=== PATIENT | female | born 1990 | race Two or more races ===

== ENCOUNTER 2019-08-02 00:58 | Emergency (ER) | payer SELFPAY ==
[~2019-08-02] VITALS: Ht 154.9 cm; Wt 47.6 kg
[2019-08-02] MEDS ORDERED: Acetaminophen 500mg (ES) tab ORAL ONE (01:30)
[2019-08-02 01:43] VITALS: BP 100/70
--- NOTE | 2019-08-02 01:43 | NUR ---
ED Nurse Note: Patient waled in to Er c/o left tumb pain 07/31. States that hit her thubmb with a car door. AAO x4, VSS at this time, skin is warm to touch.
--- NOTE | 2019-08-02 02:05 | Diagnostic Imaging Report ---
EXAM: XR Left Hand Complete, 3 or More Views CLINICAL HISTORY: PAIN TECHNIQUE: Frontal, lateral and oblique views of the left hand. COMPARISON: No relevant prior studies available. FINDINGS: Bones joints: No acute fracture. No dislocation. Soft tissues: Unremarkable. No radiopaque foreign body. IMPRESSION: No acute osseous abnormalities.
[2019-08-02] MEDS ORDERED: TYLENOL EXTRA500 MG ORAL (02:18)
--- NOTE | 2019-08-02 02:25 | NUR ---
ER DISCHARGE NOTE: Patient is cleared to be discharged per ERMD, pt is aox4, on room air, with stable vital signs. pt was given dc and prescription instructions, pt was able to verbalize understanding, pt id band removed. pt is able to ambulate with steady gait. pt took all belongings.
--- NOTE | 2019-08-02 02:40 | Emergency Room Report ---
History of Present Illness General Chief Complaint: Upper Extremity Injury Source: Patient Present Illness HPI 29-year-old female presents ED for evaluation. Patient complaining of left thumb pain and bruising. States that she slammed the thumb in a car door night. States that there is bruising and discoloration to the nailbed. Pain is throbbing, 10 out of 10, nonradiating. Denies any other injuries. No other aggravating or relieving factors. Denies any other associated symptoms Allergies: Coded Allergies: IBUPROFEN (Verified Allergy, Unknown, 08/02/19) Patient History Past Medical History: none Past Surgical History: none Pertinent Family History: none Social History: Denies: smoking, alcohol use, drug use Last Menstrual Period: 07/11/19 Now: No Immunizations: UTD Reviewed Nursing Documentation: PMH: Agreed; PSxH: Agreed Review of Systems All Other Systems: negative except mentioned in HPI Physical Exam Vital Signs Date Time Temp Pulse Resp B/P (MAP) Pulse Ox O2 Delivery O2 Flow Rate FiO2 08/02/19 01:15 98.4 84 20 100/70 (80) 99 Room Air Sp02 EP Interpretation: reviewed, normal General Appearance: no apparent distress, alert, GCS 15, non-toxic Head: normocephalic Eyes: bilateral eye normal inspection, bilateral eye PERRL ENT: normal ENT inspection Neck: normal inspection Respiratory: normal inspection Cardiovascular #1: normal inspection Gastrointestinal: normal inspection Rectal: deferred Genitourinary: no CVA tenderness Musculoskeletal: other - subungual hematoma L thumb, tender - L thumb Neurologic: alert, oriented x3, responsive, motor strength/tone normal, sensory intact, speech normal Psychiatric: judgement/insight normal, memory normal, mood/affect normal, no suicidal/homicidal ideation Skin: no rash Lymphatic: normal inspection Procedures Additional Procedure Procedure Narrative Subungual hematoma Patient placed on stretcher. Foot is draped/prepped in sterile fashion. I insert the cautery directly into the nail bed until no further ressistance is met and blood is released. I then apply pressure, until all the blood is released, causing relief in pressure to the nailbed. Dressing applied. Patient tolerated procedure without complication Medical Decision Making Diagnostic Impression: Primary Impression: Subungual hematoma ER Course Hospital Course 29-year-old female presents to ED with discoloration L thumb nail status post slammed car door Differential-contusion, fracture, dislocation, subungual hematoma Clinical course Patient placed on stretcher. After initial history and physical I ordered, pain medication and x-rays X-ray show no evidence of fracture Using cautery device I drained the subungual hematoma underneath the nail bed without difficulty. Patient notes immediate relief of pain and pressure. Dressing applied discussed findings with patient. Will discharge to home. Safe for discharge with close outpatient follow-up. Will provide referrals Diagnosis - subungual hematoma Stable and discharged to home with prescription for tylenol. wound Care instructions given. Followup with PMD. Return to ED if any signs of infection develop Other X-Ray Diagnostic Results Other X-Ray Diagnostic Results : X-Ray ordered: L fingers # of Views/Limited Vs Complete: 3 View Indication: Pain EP Interpretation: Yes Interpretation: no dislocation, no soft tissue swelling, no fractures Impression: No acute disease Electronically Signed by: Electronically signed by Holden Brito MD Last Vital Signs Date Time Temp Pulse Resp B/P (MAP) Pulse Ox O2 Delivery O2 Flow Rate FiO2 08/02/19 01:43 98.4 20 100/70 99 Room Air 08/02/19 01:15 84 Status: improved Disposition: HOME, SELF-CARE Condition: Stable Scripts Acetaminophen* (TYLENOL EXTRA STRENGTH*) 500 Mg Tablet 500 MG ORAL Q8H PRN for Prn Headache/Temp > 101, #30 TAB 0 Refills Prov: Holden Brito MD 08/02/19 Referrals: NOT CHOSEN [facility]/,REFERRING (PCP) [facility] Patient Instructions: Subungual Hematoma, [id number] Holden Brito MD Aug 02, 2019 02:40
== END 2019-08-02 02:25 | disposition home or self-care (01) ==
LOC: EMR 01:15
DX: S60.112A Contusion of left thumb with damage to nail, initial encounter (principal); Z88.8 Allergy status to other drugs, medicaments and biological substances; W23.0XXA Caught, crushed, jammed, or pinched between moving objects, initial encounter; Y92.810 Car as the place of occurrence of the external cause
CPT/HCPCS: 99283

== ENCOUNTER 2020-03-03 18:55 | Emergency (ER) | payer OTHER ==
[~2020-03-03] VITALS: Ht 160 cm; Wt 47.6 kg
[~2020-03-03 18:55] MED LIST: GUAIFENESI100 MG/5 M ORAL; TYLENOL EXTRA500 MG ORAL; ZITHROMAX250 MG ORAL
[2020-03-03 19:09] VITALS: BP 118/68
[2020-03-03 20:25] VITALS: BP 105/54
[2020-03-03 20:31] VITALS: BP 105/54
--- NOTE | 2020-03-03 20:35 | Emergency Room Report ---
History of Present Illness General Chief Complaint: Chest Pain Source: Patient Present Illness HPI Disclaimer: Please note that this report is being documented using [employer] technology. This can lead to erroneous entry secondary to incorrect interpretation by the dictating instrument. HPI: 30-year-old female presents with feelings of chest pain. She states is been present for the past couple of hours. She was lying on the couch when it started. She describes a sharp. Associated with some arm numbness. No shortness of breath nausea or vomiting. Nothing makes it better or worse. She reports feeling anxious over the past week or so. She denies any history of DVT or PE. No recent long travel. No cough or shortness of breath. No fever. She does not take control. PMH: Patient denies any past medical history PSH: Reviewed Social Hx: She denies any smoking drinking or illicit drug use. Allergies: Coded Allergies: IBUPROFEN (Verified Allergy, Unknown, 08/02/19) COVID-19 Screening Contact w/high risk pt: No Recent Travel to affected area: No Experienced COVID-19 symptoms?: No COVID-19 Testing performed BARREL BURNER: No Patient History Last Menstrual Period: na Nursing Documentation-PMH Past Medical History: No Stated History Review of Systems All Other Systems: negative except mentioned in HPI Physical Exam Vital Signs Date Time Temp Pulse Resp B/P (MAP) Pulse Ox O2 Delivery O2 Flow Rate FiO2 03/03/20 19:03 97.9 97 24 114/65 (81) 99 Room Air Sp02 EP Interpretation: reviewed, normal General Appearance: well appearing, no apparent distress Head: normocephalic, atraumatic Eyes: bilateral eye PERRL, bilateral eye EOMI ENT: hearing grossly normal, moist mucus membranes Neck: full range of motion, supple Respiratory: lungs clear, normal breath sounds, no rhonchi, no respiratory distress, no retraction, no wheezing Cardiovascular #1: normal peripheral pulses, regular rate, rhythm, no murmur, other - Chest wall tenderness to the left chest wall Cardiovascular #2: 2+ radial (R), 2+ radial (L) Gastrointestinal: non tender, soft, non-distended, no guarding Neurologic: alert, oriented x3, no focal defects Skin: normal color, warm/dry Medical Decision Making Diagnostic Impression: Primary Impression: Atypical chest pain Additional Impression: Anxiety ER Course MDM: 30-year-old female chest pain. Differential diagnosis included but not limited to anxiety, musculoskeletal pain, did consider pneumonia, infectious process, pneumothorax, PE however vital signs were stable she was in no acute distress no shortness of breath she was PERC negative. Chest x-ray reviewed and showed no acute abnormalities. EKG was normal sinus rhythm. Low suspicion for emergent process at this time. Plan at this stage patient home. Follow-up PMD. Given return precautions. EKG Diagnostic Results Rate: normal Rhythm: NSR ST Segments: no acute changes Chest X-Ray Diagnostic Results Chest X-Ray Diagnostic Results : Chest X-Ray Ordered: Yes # of Views/Limited/Complete: 1 View Indication: Chest Pain EP Interpretation: Yes Interpretation: no consolidation, no effusion, no pneumothorax Impression: No acute disease Electronically Signed by: Bryant Peres MD Last Vital Signs Date Time Temp Pulse Resp B/P (MAP) Pulse Ox O2 Delivery O2 Flow Rate FiO2 03/03/20 20:25 98.3 78 17 105/54 100 Room Air Disposition: HOME, SELF-CARE Condition: Stable Patient Instructions: Nonspecific Chest Pain Additional Instructions: Patient is instructed to follow-up with her primary care doctor, primary care clinic or county clinic in 1 to 2 days. Patient instructed to return for any worsening symptoms or concerns. Disclaimer: Please note that this report is being documented using [employer] technology. This can lead to erroneous entry secondary to incorrect interpretation by the dictating instrument. Bryant Peres M.D. March 03, 2020 20:35
--- NOTE | 2020-03-05 16:30 | Diagnostic Imaging Report ---
Procedure: XRAY Chest 1v Reason for study: Chest pain Comparison films: None. FINDINGS: A single one view chest is obtained. Vascularity is normal. The lung scanlon are clear bilaterally. Cardiac and mediastinal silhouette are within normal limits. CP angles are sharp. The bony thorax appear unremarkable. IMPRESSION: NO ACUTE CARDIOPULMONARY DISEASE.
== END 2020-03-03 20:35 | disposition home or self-care (01) ==
LOC: EMR 19:10 → CANBEDREQ 20:06 → EMR 20:35
DX: R07.89 Other chest pain (principal); F41.9 Anxiety disorder, unspecified; Z88.6 Allergy status to analgesic agent
CPT/HCPCS: 71045; Z7502; 99283

== ENCOUNTER 2020-07-18 19:24 | Emergency (ER) | payer OTHER ==
[~2020-07-18] VITALS: Ht 167.6 cm; Wt 63.5 kg
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
[2020-07-18 19:58] VITALS: BP 107/66
--- NOTE | 2020-07-18 20:12 | Emergency Room Report ---
History of Present Illness General Chief Complaint: General Complaint Source: Patient Present Illness HPI Patient is a 30-year-old female presents for increased chest discomfort. Reports having associated shortness of breath onset approximately 1 week ago. States she has some headache. Had reportedly had no similar symptoms in the past. Denies being . Patient is currently a resident at a [facility]. Reports having chest pain for several days. Allergies: Coded Allergies: IBUPROFEN (Verified Allergy, Unknown, 08/02/19) COVID-19 Screening Contact w/high risk pt: No Recent Travel to affected area: No Experienced COVID-19 symptoms?: No COVID-19 Testing performed HR ADMINISTRATIVE ASSISTANT: No Patient History Reviewed Nursing Documentation: PMH: Agreed; PSxH: Agreed Nursing Documentation-PMH Past Medical History: No Stated History Review of Systems All Other Systems: negative except mentioned in HPI Physical Exam Vital Signs Date Time Temp Pulse Resp B/P (MAP) Pulse Ox O2 Delivery O2 Flow Rate FiO2 07/18/20 19:31 98.2 70 16 107/66 (80) 98 Room Air Sp02 EP Interpretation: reviewed, normal General Appearance: normal inspection, well appearing, no apparent distress, alert, GCS 15, non-toxic Head: atraumatic ENT: normal ENT inspection, hearing grossly normal, normal voice Neck: normal inspection, full range of motion, supple, no bony tend Respiratory: normal inspection, lungs clear, normal breath sounds, no respiratory distress, no retraction, no wheezing Cardiovascular #1: regular rate, rhythm, no edema Gastrointestinal: normal inspection, normal bowel sounds, non tender, soft, no guarding, no hernia Genitourinary: no CVA tenderness Musculoskeletal: normal inspection, back normal, normal range of motion Neurologic: alert, motor strength/tone normal, athletic team physician III-XII nml as tested, oriented x3, responsive, speech normal, normal inspection Psychiatric: normal inspection, judgement/insight normal, mood/affect normal Medical Decision Making Diagnostic Impression: Primary Impression: Atypical chest pain ER Course Patient presented for chest pain. Diagnosis include was not limited to irritant bronchitis, pneumonia, costochondritis, coronavirus infection among others. Patient has a benign exam and does not appear to require any imaging or laboratory testing at this time. Patient does not have any known cardiac or DVT risk factors. She is staying at a [facility] currently. Patient states that she has been there for proximally 1 year and had not had any testing previously. Chest x-ray was ordered.Patient's x-ray imaging was unremarkable. Coronavirus testing was negative. EKG Diagnostic Results Rate: normal Rhythm: NSR ST Segments: no acute changes Last Vital Signs Date Time Temp Pulse Resp B/P (MAP) Pulse Ox O2 Delivery O2 Flow Rate FiO2 07/18/20 19:58 70 16 Room Air 07/18/20 19:58 98.2 107/66 98 Status: improved Condition: Stable Referrals: NON PHYSICIAN (PCP) Samuel Meadows MD Jul 18, 2020 20:12
[2020-07-18] MEDS ORDERED: Albuterol/Ipratropium 3ml neb HHN ONE (20:15)
--- NOTE | 2020-07-18 20:15 | NUR ---
ED Nurse Note: covid swab collected; sent down to lab. ekg done at bedside; NSR
--- NOTE | 2020-07-18 20:54 | Diagnostic Imaging Report ---
EXAM: XR Chest, 1 View CLINICAL HISTORY: SOB TECHNIQUE: Frontal view of the chest. COMPARISON: 03/03/2020 chest x-ray FINDINGS: Lungs: Unremarkable. No consolidation. Pleural space: Unremarkable. No pneumothorax. Heart: Unremarkable. No cardiomegaly. Mediastinum: Unremarkable. Bones/joints: Unremarkable. IMPRESSION: Normal chest x-ray.
--- NOTE | 2020-07-18 21:15 | NUR ---
ED Nurse Note: urine collected; sent down to lab.rt at bedside for breathing tx.
[2020-07-18] MEDS ORDERED: ACETAMINOPHEN500 M3 ORAL (21:29)
[2020-07-18] MEDS ORDERED: ALBUTEROL SULF8.5 G1 INH (21:29)
[2020-07-18 21:34] VITALS: BP 110/67
--- NOTE | 2020-07-18 21:34 | NUR ---
ER DISCHARGE NOTE: breathing treatment completed; patient reports relief. Patient is cleared to be discharged per ERMD, pt is aox4, on room air, with stable vital signs. pt was given dc and prescription instructions, pt was able to verbalize understanding, pt id band removed. pt is able to ambulate with steady gait. pt took all belongings.
[2020-07-19] MEDS ORDERED: ALBUTEROL SULF8.5 G1 INH (09:32)
[2020-07-19] MEDS ORDERED: ACETAMINOPHEN500 M5 ORAL (09:32)
--- NOTE | 2020-07-20 20:04 | Cardiology Report ---
APPROVED REPORT EKG Measurement Heart [id number] <Conclusion> Normal sinus rhythm Cannot rule out Anterior infarct, age undetermined Abnormal ECG
== END 2020-07-18 21:35 | disposition home or self-care (01) ==
LOC: EMR 19:54
DX: R07.9 Chest pain, unspecified (principal); Z88.6 Allergy status to analgesic agent; R51 Headache; R06.02 Shortness of breath
CPT/HCPCS: 71045; 81025; 93005; 94640; U0002; Z7502; 99284; J7620

== ENCOUNTER 2020-07-21 20:04 | Emergency (ER) | payer OTHER ==
[~2020-07-21] VITALS: Ht 160 cm; Wt 54.4 kg
[~2020-07-21 20:04] MED LIST changes: +ACETAMINOPHEN500 M3 ORAL; +ACETAMINOPHEN500 M5 ORAL; +ALBUTEROL SULF8.5 G1 INH
[2020-07-21 20:12] VITALS: BP 114/65
[2020-07-21 20:38] LABS: EOSINOPHILS % (AUTO) 4.2 % (0.0-3.0); HEMATOCRIT 41.3 % (37.0-47.0); HEMOGLOBIN 13.5 G/DL (12.0-16.0); LYMPHOCYTES % (AUTO) 42.6 % (20.0-45.0); MEAN CORPUSCULAR VOLUME 88 FL (80-99); MONOCYTES % (AUTO) 6.6 % (1.0-10.0); NEUTROPHILS % (AUTO) 44.6 % (45.0-75.0); PLATELET COUNT 246 K/UL (150-450); RED BLOOD COUNT 4.71 M/UL (4.20-5.40); RED CELL DISTRIBUTION WIDTH 11.6 % (11.6-14.8)
[2020-07-21 20:48] LABS: ANION GAP 8 mmol/L (5-15); BLOOD UREA NITROGEN 7 mg/dL (7-18); CALCIUM 9.6 MG/DL (8.5-10.1); CARBON DIOXIDE 24 MMOL/L (21-32); CHLORIDE 106 MMOL/L (98-107); CREATININE 0.7 MG/DL (0.55-1.30); POTASSIUM 3.4 MMOL/L (3.5-5.1); SODIUM 138 MMOL/L (136-145)
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
[2020-07-21 20:53] LABS: ALANINE AMINOTRANSFERASE 16 U/L (12-78); ALBUMIN 3.9 G/DL (3.4-5.0); ALBUMIN/GLOBULIN RATIO 1.3 (1.0-2.7); ALKALINE PHOSPHATASE 54 U/L (46-116); ASPARTATE AMINO TRANSFERASE 22 U/L (15-37); BILIRUBIN,TOTAL 0.2 MG/DL (0.2-1.0)
[2020-07-21 21:06] LABS: APPEARANCE,URINE CLEAR; BILIRUBIN, URINE NEGATIVE (NEGATIVE); COLOR,URINE PALE YELLOW; GLUCOSE, URINE (UA) NEGATIVE (NEGATIVE); KETONES,URINE NEGATIVE (NEGATIVE); LEUKOCYTE ESTERASE ,URINE NEGATIVE (NEGATIVE); NITRITE,URINE NEGATIVE (NEGATIVE); PH,URINE 8 (4.5-8.0); PROTEIN,URINE NEGATIVE (NEGATIVE); UROBILINOGEN,URINE NORMAL MG/DL (0.0-1.0)
[2020-07-21] MEDS ORDERED: TYLENOL EXTRA500 MG ORAL (21:18)
[2020-07-21 21:46] VITALS: BP 117/79
--- NOTE | 2020-07-22 12:24 | Diagnostic Imaging Report ---
Indication: Chest pain Technique: One view of the chest Comparison: none Findings: Lungs and pleural spaces are clear. Heart size is normal. No significant change Impression: No acute process
--- NOTE | 2020-07-22 17:35 | Cardiology Report ---
APPROVED REPORT EKG Measurement Heart [id number] <Conclusion> Normal sinus rhythm Normal ECG
== END 2020-07-21 21:46 | disposition home or self-care (01) ==
LOC: EDBD 20:04 → EMR 20:15
DX: R07.9 Chest pain, unspecified (principal); J45.909 Unspecified asthma, uncomplicated; Z88.6 Allergy status to analgesic agent
CPT/HCPCS: 36415; 71045; 80053; 80307; 81003; 81025; 84484; 85025; 85379; 93005; Z7502; 99283